=== PATIENT | male | born 1990 | race Caucasian/White ===

== ENCOUNTER 2017-04-04 02:42 | Emergency (ER) | payer SELFPAY ==
--- NOTE | ~2017-04-04 | ER ---
[facility] AGE: 27 Y [address] ROOM: [place] [address] LOCATION: [facility] ADMIT DATE: 04/04/2017 ER/Outpatient Report DISCHARGE DATE: 04/04/2017 FAMILY PHYSICIAN: Dayron Walker MD ATTENDING PHYSICIAN: Nataly Ty TIME OF ARRIVAL: 0242. TIME SEEN: 0301. IDENTIFICATION: A 27-year-old male. CHIEF COMPLAINT: Groin pain. HISTORY OF PRESENT ILLNESS: The patient is a 27-year-old male, who has pain in his low abdomen since yesterday, increased frequency of urination, and back pain. He has also had some urethral discharge. He has multiple sexual partners. He reports that none of them are new. He has not had a history of any STD in the past. ALLERGIES: NO KNOWN DRUG ALLERGIES. CURRENT MEDICATIONS: Albuterol. MEDICAL PROBLEMS: Mild intermittent asthma. SOCIAL HISTORY: The patient lives here in [place]. Tobacco use, 1 pack per day. Alcohol use, socially. Drug use, occasional marijuana. REVIEW OF SYSTEMS: All systems were reviewed and are negative other than what is noted in the HPI. PHYSICAL EXAMINATION: VITAL SIGNS: Height is 6 feet 1 inch and weight is 63.8 kg. Blood pressure was 123/63, pulse was 99, respirations were 18, temperature was 97.3, and sats were 98% on room air. PAT[facility]: [facility] AGE: 27 Y [address] ROOM: [place] [address] LOCATION: [facility] ADMIT DATE: 04/04/2017 ER/Outpatient Report DISCHARGE DATE: 04/04/2017 FAMILY PHYSICIAN: Dayron Walker MD ATTENDING PHYSICIAN: Nataly Ty GENERAL: A 27-year-old male, in no acute distress. HEENT: Head: Normocephalic and atraumatic. Ears: TMs were translucent both ears. Nose: Mucosa was pink and no lesions. Mouth: No lesions. Pharynx was benign. NECK: Supple. No lymphadenopathy. LUNGS: Clear to auscultation. HEART: Regular rate and rhythm. ABDOMEN: Soft, nondistended, and tender to palpation in the lower abdomen. No rebound or guarding. No CVA tenderness. SKIN: [place], warm, and dry. No lesions or rashes were noted. NEUROLOGICAL: No focal deficit. GENITOURINARY: No inguinal lymphadenopathy. He does have some urethral discharge. LABORATORY DATA: UA: Specific gravity was 1.020, pH was 6, packed field of white cells, 5 to 10 red cells, rare epithelial cells, and few bacteria. Urine was positive for gonorrhea. IMPRESSION: Gonococcal urethritis. PLAN: Rocephin 250 mg IM and doxycycline 100 mg b.i.d. for seven days. Follow up with Dr. Walker in 7 days or follow up sooner if any problems or concerns. Safe sex was discussed. MD JOAQUINA TILLEY/samanta /[id number] d: 04/04/17624 t: 04/05/17 1949, OUTPATIENT REPORT
[2017-04-04 03:10] LABS: BILIRUBIN URINE NEGATIVE (NEGATIVE); BLOOD URINE 50 /UL (NEGATIVE); COLOR URINE YELLOW (YELLOW); GLUCOSE URINE NEGATIVE (NEGATIVE); KETONE URINE NEGATIVE (NEGATIVE); LEUKOCYTES URINE 500 /UL (NEGATIVE); NITRITE URINE NEGATIVE (NEGATIVE); PROTEIN URINE 30 mg/dL (NEGATIVE); TURBIDITY URINE 3+ (CLEAR); UROBILINOGEN URINE NORMAL (NORMAL)
[2017-04-04 03:20] LABS: WBC URINE PACKED FIELD #/HPF (NEGATIVE)
[2017-04-04 03:21] LABS: BACTERIA URINE FEW (NEGATIVE); EPITHELIAL URINE RARE #/HPF (NEGATIVE)
== END 2017-04-04 05:15 | disposition disaster alternative care site (69) ==
LOC: GMED 02:42
PROVIDERS: Family Medicine
DX: A54.01 Gonococcal cystitis and urethritis, unspecified (principal); J45.909 Unspecified asthma, uncomplicated; F17.210 Nicotine dependence, cigarettes, uncomplicated
CPT/HCPCS: J0696

== ENCOUNTER → 2017-04-07 | Emergency (ER) | payer SELFPAY | END | disposition disaster alternative care site (69) | LOC: GAMB 18:47 | DX: F99 Mental disorder, not otherwise specified (principal); R06.00 Dyspnea, unspecified ==